=== PATIENT | male | born 1955 | race Caucasian/White ===

== ENCOUNTER 2019-12-29 15:43 | Emergency (ER) | payer MEDICARE, SELFPAY ==
--- NOTE | ~2019-12-29 | XR_ITS ---
EXAMINATION: XR wrist LT min 3V EXAM DATE: 12/29/2019 16:17 INDICATION: Initial encounter following injury, with pain of the left wrist. TECHNIQUE: Left wrist frontal, frontal with ulnar deviation, oblique and lateral projections obtained and reviewed. There is no prior study for comparison. FINDINGS: Left wrist scapholunate joint space is maintained. There is osseous arthrodesis of the 1st carpometacarpal joint. There are no acute fractures or dislocations identified. There is no subcuta neous gas. There is soft tissue swelling along the distal aspect of the radius and ulna. IMPRESSION: 1. XR wrist LT min 3V exam without acute osseous findings. 2. Soft tissue swelling. Reviewed, dictated and finalized at location A. MAN
[2019-12-29 15:54] VITALS: BP 138/75; PULSE 73; RESP 18; TEMP 36.7; O2SAT 99
--- NOTE | 2019-12-29 16:09 | ED.UPPEXIN ---
HPI - Extremity Injury (Upper) General Chief Complaint: Extremity Injury, Upper Stated Complaint: left wrist swollen due to injury Source: patient Mode of arrival: ambulatory Limitations: no limitations History of Present Illness HPI narrative: Patient is a 64-year-old male who presents with swelling to left wrist. He reports he was moving a 350 pounds safe downstairs with son when it slipped hitting him in the arm. Large hematoma to left wrist. Patient has full range of movement, reports mild pain. Denies taking [id number] medications for pain prior to arrival. MD complaint: injury to: left and wrist Related Data Home Medications Medication Instructions Recorded Confirmed alprazolam 0.25 mg PO BID PRN 12/29/19 12/29/19 fluticasone propionate INTRANASAL 12/29/19 gabapentin 12/29/19 hydrocodone-acetaminophen 12/29/19 metoprolol succinate PO 12/29/19 tamsulosin mg PO 12/29/19 Allergies Allergy/AdvReac Type Severity Reaction Status Date / Time ezetimibe AdvReac Severe DIAHRREA Verified 12/29/19 16:14 simvastatin AdvReac Severe DIAHRREA Verified 12/29/19 16:14 Review of Systems Review of Systems: Narrative: CONSTITUTIONAL: Denies fever, chills, or sweats. EYES: Denies visual changes, redness, or discharge. ENT: Denies rhinorrhea, congestion, sore throat, or otalgia. CARDIOVASCULAR: Denies chest pain, palpitations, or edema. RESPIRATORY: Denies cough or dyspnea. GASTROINTESTINAL: Denies abdominal pain, nausea, vomiting, or diarrhea. GENITOURINARY: Denies dysuria or hematuria. SKIN: Denies rash or itching. MUSCULOSKELETAL: Left wrist pain NEUROLOGIC: Denies headache, numbness, dizziness, or weakness. PSYCHIATRIC: Denies anxiety or depression. [facility] Past Medical History Medical History Alcohol use Anxiety Arthritis BPH (benign prostatic hyperplasia) GERD (gastroesophageal reflux disease) HTN (hypertension) Hypercholesterolemia Medial meniscus tear Myocardial infarction Opiate use Seasonal allergies Sinusitis Surgical History Surgical History H/O cardiac catheterization H/O repair of rotator cuff Hx of CABG Hx of colonoscopy Previous back surgery S/P right knee arthroscopy Family History Family History Father Family history of lung cancer Family history of malignant neoplasm of bone Sibling Family history of malignant neoplasm of ovary Social History Social History (Updated 12/29/19 @ 16:19 by OMAR Schulz) Smoking status: Former smoker Tobacco type: cigarettes Alcohol intake: current Substance use: never Living arrangements: with family Exam Narrative: Exam Narrative: GENERAL: Well-appearing, well-nourished, and in no acute distress. HEAD: Normocephalic, atraumatic. EYES: Conjunctiva are normal. ENT: Mucous membranes pink and moist. CHEST: No respiratory distress. MUSCULOSKELETAL: No bony tenderness. EXTREMITIES: Normal range of motion. Large hematoma to left wrist SKIN: Warm, dry, no rash. NEURO: No focal deficits. Alert and oriented x3. Gait steady. PSYCH: Normal affect. No signs of depression or anxiety. Course Vital Signs Vital signs: Vital Signs Temperature 36.7 C 12/29/19 15:54 Pulse Rate 73 12/29/19 15:54 Respiratory Rate 18 12/29/19 15:54 Blood Pressure 138/75 12/29/19 15:54 Pulse Oximetry 99 12/29/19 15:54 Temperature 36.7 C 12/29/19 15:54 Pulse Rate 73 12/29/19 15:54 Respiratory Rate 18 12/29/19 15:54 Blood Pressure 138/75 12/29/19 15:54 Pulse Oximetry 99 12/29/19 15:54 Reviewed. Patient has been instructed to follow-up with his PCP regarding his blood pressure. MDM - Extremity Injury (Upper) MDM Narrative Medical decision making narrative: Patient has hematoma to left forearm, no fracture noted. Discussed with patient rest ice
--- NOTE | 2019-12-29 16:32 | PC.NURSE ---
PATIENT REFUSED XUAN WRAP AT THIS TIME. STATES HE HAS ONE AT HOME.
== END 2019-12-29 16:25 | disposition home or self-care (01) ==
PROVIDERS: Emergency Provider Nurse Practitioner; PCP Internal Medicine
DX: S60.212A Contusion of left wrist, initial encounter (principal); W22.8XXA Striking against or struck by other objects, initial encounter; M19.90 Unspecified osteoarthritis, unspecified site; N40.0 Benign prostatic hyperplasia without lower urinary tract symptoms; K21.9 Gastro-esophageal reflux disease without esophagitis; I10 Essential (primary) hypertension; E78.00 Pure hypercholesterolemia, unspecified; I25.2 Old myocardial infarction; Z95.1 Presence of aortocoronary bypass graft; F41.9 Anxiety disorder, unspecified
CPT/HCPCS: 73110; 99213; G0463